=== PATIENT | male | born 1995 ===

== ENCOUNTER 2020-06-28 21:22 | Emergency (ER) | payer SELFPAY ==
[2020-06-28 21:42] VITALS: BP 121/80
[2020-06-28] MEDS ORDERED: DIPHtheria,PERTUSSIS(ACELL),TETANUS VACCINE/PF 0.5 ML VIAL IM ONE (22:45)
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
== END 2020-06-28 22:53 | disposition home or self-care (01) ==
LOC: ED 21:22
DX: S01.412A Laceration without foreign body of left cheek and temporomandibular area, initial encounter (principal); J45.909 Unspecified asthma, uncomplicated; X58.XXXA Exposure to other specified factors, initial encounter; Y93.89 Activity, other specified; Y92.89 Other specified places as the place of occurrence of the external cause; Y99.8 Other external cause status
CPT/HCPCS: 90471; 90715; 99282